=== PATIENT | female | born 1995 | race Two or more races ===

== ENCOUNTER 2017-11-09 09:01 | Outpatient (CLI) | payer OTHER ==
[~2017-11-09 09:01] MED LIST: ATENOLOL25 MG PO; KETO10TA2 PO
== END 2017-11-09 16:08 | disposition home or self-care (01) ==
LOC: RAD 09:01
DX: R06.02 Shortness of breath (principal); Q87.40 Marfan syndrome, unspecified

== ENCOUNTER 2017-11-23 05:25 | Inpatient (IN) | payer OTHER ==
[~2017-11-23] VITALS: Ht 160 cm; Wt 45.8 kg
[2017-11-24] MEDS ORDERED: ATENOLOL25 MG (13:32)
[2017-11-26] MEDS ORDERED: CODE1TAB37 PO (06:48)
== END 2017-11-26 08:58 | disposition home or self-care (01) | DRG 743 ==
LOC: CIR.AMB 05:25 → O/R 11:49 → OB/GYN 11:49 → CIR.AMB 14:55 → OB/GYN 11-26 08:58
PROVIDERS: Obstetrics & Gynecology
PROC: 0WJG4ZZ Inspection of Peritoneal Cavity, Percutaneous Endoscopic Approach (ICD-10-PCS; principal; 2017-11-23 07:00)
PROC: 0UB10ZZ Excision of Left Ovary, Open Approach (ICD-10-PCS; 2017-11-23 07:00)
DX: D27.1 Benign neoplasm of left ovary (principal); N83.292 Other ovarian cyst, left side

== ENCOUNTER 2020-02-11 13:53 | Emergency (ER) | payer OTHER ==
[~2020-02-11] VITALS: Ht 160 cm; Wt 45.4 kg
[~2020-02-11 13:53] MED LIST changes: +ATENOLOL25 MG; +CODE1TAB37 PO
[2020-02-11] MEDS ORDERED: ACID REDUCER20 M1 (14:07)
== END 2020-02-11 18:10 | disposition home or self-care (01) ==
LOC: ER 13:53
DX: S00.81XA Abrasion of other part of head, initial encounter (principal); Y33.XXXA Other specified events, undetermined intent, initial encounter; Y93.89 Activity, other specified; Y92.098 Other place in other non-institutional residence as the place of occurrence of the external cause; Y99.8 Other external cause status; Q87.40 Marfan syndrome, unspecified

== ENCOUNTER 2021-05-16 07:02 | Emergency (ER) | payer OTHER ==
[~2021-05-16] VITALS: Ht 167.6 cm; Wt 51.3 kg
[~2021-05-16 07:02] MED LIST changes: +ACID REDUCER20 M1
[2021-05-16] MEDS ORDERED: LEVSIN/SL0.125 MG PO (13:44)
[2021-05-16] MEDS ORDERED: INTESTINEX680 M1 PO (13:44)
[2021-05-16] MEDS ORDERED: ONDANSETRON ODT4 MG PO (13:44)
[2021-05-16] MEDS ORDERED: PEPCID AC20 MG PO (13:44)
== END 2021-05-16 14:31 | disposition home or self-care (01) ==
LOC: ER 07:02
DX: K52.89 Other specified noninfective gastroenteritis and colitis (principal)